=== PATIENT | male | born 1970 | race Hispanic/Latino ===

== ENCOUNTER 2022-01-13 20:15 | Emergency (ER) | payer OTHER ==
[2022-01-13] MEDS ORDERED: LIDOCAINE 0.5%/EPINEPHRINE 1:200,000 VIAL (50 ML) MDV INFILTRATI ONE (21:16)
[2022-01-13] MEDS ORDERED: HYDROcodone/ACETAMINOPHEN 5-325 MG TAB PO ONE (21:41)
[2022-01-13] MEDS ORDERED: cephALEXin 500 MG CAP PO ONE (22:00)
--- NOTE | 2022-01-13 22:06 | Emergency Department Report ---
ED General Adult HPI - General Chief complaint: Wound/Laceration Stated complaint: CHIN LAC Time Seen by Provider: 01/13/22 21:16 Source: police Mode of arrival: Ambulatory Limitations: No Limitations - History of Present Illness Initial comments: 51-year-old male states inmate in custody of [facility] department. [place] at bedside. Patient presents for chin laceration status post fall from mid concrete wall today approximately 4 hours ago. Patient remained recalls entire incident. States he bit his tongue and cause laceration to bottom of his chin. Bleeding was stopped via direct pressure self applied. Last tetanus 2 years ago. There is no LOC, patient was immediately amatory after incident. Did arrive via police department patient is alert oriented x3 complains of 8/10 chin pain exacerbated by movement. And 4/10 posterior neck pain exacerbated by movement. There is noted 3 cm laceration to dorsal chin. No bleeding noted at this time. No foreign bodies noted at this time no obvious deformity. Pain is exacerbated by palpation. As are relieved by nothing tried. - Related Data Previous Rx's Medication Instructions Recorded Last Taken Type cephALEXin [Keflex] 500 mg PO TID 7 Days #21 cap 01/13/22 Unknown Rx traMADoL [Ultram] 50 mg PO Q6HR PRN #12 tablet 01/13/22 Unknown Rx Allergies Allergy/AdvReac Type Severity Reaction Status Date / Time No Known Allergies Allergy Verified 01/13/22 21:19 ED Review of Systems ROS: Stated complaint: CHIN LAC Other details as noted in HPI Constitutional: denies: chills, fever Eyes: denies: eye pain, eye discharge, vision change ENT: denies: ear pain, throat pain Respiratory: denies: cough, shortness of breath, wheezing Cardiovascular: denies: chest pain, palpitations Endocrine: no symptoms reported Gastrointestinal: denies: abdominal pain, nausea, diarrhea Genitourinary: denies: urgency, dysuria Musculoskeletal: other (Neck pain chin pain Chin laceration) Skin: other (Laceration chin 3 cm) Neurological: denies: headache, weakness, numbness, paresthesias, confusion, vertigo Psychiatric: denies: anxiety, depression Hematological/Lymphatic: denies: easy bleeding, easy bruising ED Past Medical Hx - Past Medical History Previous Medical History?: No - Surgical History Past Surgical History?: No - Social History Smoking Status: Former Smoker Substance Use Type: None - Medications Home Medications: Home Medications Medication Instructions Recorded Confirmed Last Taken Type cephALEXin [Keflex] 500 mg PO TID 7 Days #21 cap 01/13/22 Unknown Rx traMADoL [Ultram] 50 mg PO Q6HR PRN #12 tablet 01/13/22 Unknown Rx ED Physical Exam - General Limitations: No Limitations General appearance: alert, in no apparent distress - Head Head exam: Present: normocephalic, normal inspection - Expanded Head Exam Expanded Head exam: Present: laceration (Chin 3 cm). Absent: abrasion, contusion, hematoma - Eye Eye exam: Present: PERRL, EOMI. Absent: conjunctival injection, nystagmus, periorbital swelling, periorbital tenderness Pupils: Present: normal accommodation - ENT ENT exam: Present: normal orophraynx, mucous membranes moist, TM's normal bilaterally - Neck Neck exam: Present: normal inspection, tenderness (Right posterior paraspinous muscle point tenderness to deep palpation there is no crepitus no ecchymosis no step-off range of motion intact unrestricted to all quadrants posterior vertebral point tenderness), full ROM - Respiratory Respiratory exam: Present: normal lung sounds bilaterally. Absent: respiratory distress, wheezes, stridor, chest wall tenderness - Cardiovascular Cardiovascular Exam: Present: regular rate, normal rhythm, normal heart sounds. Absent: systolic murmur, diastolic murmur, rubs, gallop - GI/Abdominal GI/Abdominal exam: Present: soft, normal bowel sounds. Absent: distended, tenderness - Rectal Rectal exam: Present: deferred - Extremities Exam Extremities exam: Present: normal inspection, full ROM, normal capillary refill. Absent: tenderness - Back Exam Back exam: Present: normal inspection, full ROM. Absent: paraspinal tenderness, vertebral tenderness - Neurological Exam Neurological exam: Present: alert, oriented X3, CN II-XII intact, normal gait, reflexes normal. Absent: motor sensory deficit - Expanded Neurological Exam Expanded Patient oriented to: Present: person, place, time Speech: Present: fluid speech Cranial nerves: EOM's Intact: Normal, Gag Reflex: Normal, Tongue Deviation: Normal, Nystagmus: Normal, Facial Sensation: Normal Cerebellar function: Finger to Nose: Normal Motor strength exam: RUE: 5, LUE: 5, RLE: 5, LLE: 5 Best Eye Response (B[place]): (4) open spontaneously Best Motor Response ([place]): (6) obeys commands Best Verbal Response (Sabrina): (5) oriented [place] Total: 15 - Psychiatric Psychiatric exam: Present: normal affect, normal mood - Skin Skin exam: Present: warm, dry, normal color, other (3 cm chin). Absent: rash ED Course Vital Signs 01/13/22 20:16 Temperature 97.2 F L Pulse Rate 64 Respiratory 18 Rate Blood Pressure 140/77 O2 Sat by Pulse 96 Oximetry - Laceration /Wound Repair Face Wound Location: face (Dorsal chin 3 cm noncontaminated no nerve muscle or tendon damage no oral intrusion.) Wound Length (cm): 3 Wound's Depth, Shape: superficial Wound Explored: no foreign body removed Irrigated w/ Saline (ccs): 80 Betadine Prep?: Yes Anesthesia: 1% Lidocaine Volume Anesthetic (ccs): 3 Wound Debrided: minimal Wound Repaired With: sutures Suture Size/Type: 4:0, proline Number of Sutures: 8 (Running) Layer Closure?: No Sterile Dressing Applied?: Yes Progress: Chin laceration site cleaned with Betadine solution. Anesthesia 1% lidocaine x3 cc anesthesia is achieved. Wound irrigated with 80 cc sterile saline. No foreign bodies noted. Wound explored and manually probed with six-inch blunt forceps. Wound closed with four-point 0 Prolene times 8 sutures running edges well approximated all bleeding is controlled sterile dressing applied patient given wound care instructions patient verbalized understanding of same. Patient tolerated procedure with minimal distress. ED Medical Decision Making - Radiology Data Radiology results: report reviewed, image reviewed FACIAL BONES 3 VIEW(S) INDICATION / CLINICAL INFORMATION: chin laceration fall COMPARISON: None available. FINDINGS: BONES: No acute fracture. PARANASAL SINUSES: No significant abnormality. SOFT TISSUES: No significant abnormality. ADDITIONAL FINDINGS: None. IMPRESSION: 1. No significant abnormality. Signer Name: Pj Alonso DO Signed: 01/13/2022 10:33 PM Workstation Name: [id number] Transcribed By: CHICHI Dictated By: PJ ALONSO DO Electronically Authenticated By: PJ ALONSO DO Signed Date/Time: 01/13/222232 DD/ 31 TD/TT: CERVICAL SPINE 3 VIEWS INDICATION / CLINICAL INFORMATION: Neck pain s/p fall. COMPARISON: None available. FINDINGS: VERTEBRAE: No acute fracture. No significant malalignment. DISC SPACES / FACET JOINTS:Mild degenerative disc disease at C5-C6 and C6-C7. PARASPINAL SOFT TISSUES:No significant abnormality. ADDITIONAL FINDINGS: None. Signer Name: Pj Alonso DO Signed: 01/13/2022 10:33 PM Workstation Name: [id number] Transcribed By: CHICHI Dictated By: PJ ALONSO DO Electronically Authenticated By: PJ ALONSO DO Signed Date/Time: 01/13/222232 DD/ 32 TD/TT: - Medical Decision Making Chin laceration closed see procedure note. X-rays normal no fracture no subluxation no dislocation no soft tissue abnormalities. Plan DC to custody of [facility] department. [facility] check. Return to emergency department should symptoms worsen. Patient verbalized agreement understanding of discharge plan. Patient DC'd in custody of [facility]'s department at this time. All bleeding is controlled sterile dressing is intact. Critical care attestation.: If time is entered above; I have spent that time in minutes in the direct care of this critically ill patient, excluding procedure time. ED Disposition Clinical Impression: Laceration of chin Qualifiers: Encounter type: initial encounter Qualified Code(s): S01.81XA - Laceration without foreign body of other part of head, initial encounter Fall Qualifiers: Encounter type: initial encounter Qualified Code(s): W19.XXXA - Unspecified fall, initial encounter Disposition: HOME / SELF CARE / HOMELESS Is pt being admited?: No Does the pt Need Aspirin: No Condition: Stable Instructions: Laceration Care, Adult, Sutures, [place], or Adhesive Wound Closure Additional Instructions: Take medications as prescribed, follow-up with your doctor in 2 days for wound check. In 7 to 10 days for suture removal. Return to emergency department should symptoms worsen. Prescriptions: cephALEXin [Keflex] 500 mg PO TID 7 Days #21 cap traMADoL [Ultram] 50 mg PO Q6HR PRN #12 tablet PRN Reason: Pain Referrals: PRIMARY CARE,MD [Primary Care Provider] - 3-5 Days Time of Disposition: 22:54
--- NOTE | 2022-01-13 22:37 | XRay Report ---
FACIAL BONES 3 VIEW(S) INDICATION / CLINICAL INFORMATION: chin laceration fall COMPARISON: None available. FINDINGS: BONES: No acute fracture. PARANASAL SINUSES: No significant abnormality. SOFT TISSUES: No significant abnormality. ADDITIONAL FINDINGS: None. IMPRESSION: 1. No significant abnormality. Signer Name: Pj Alonso DO Signed: 01/13/2022 10:33 PM Workstation Name: [id number]
--- NOTE | 2022-01-13 22:38 | XRay Report ---
CERVICAL SPINE 3 VIEWS INDICATION / CLINICAL INFORMATION: Neck pain s/p fall. COMPARISON: None available. FINDINGS: VERTEBRAE: No acute fracture. No significant malalignment. DISC SPACES / FACET JOINTS:Mild degenerative disc disease at C5-C6 and C6-C7. PARASPINAL SOFT TISSUES:No significant abnormality. ADDITIONAL FINDINGS: None. Signer Name: Pj Alonso DO Signed: 01/13/2022 10:33 PM Workstation Name: [id number]
[2022-01-13 23:01] VITALS: BP 136/82
== END 2022-01-13 23:01 | disposition home or self-care (01) ==
LOC: ED 20:15
DX: S01.81XA Laceration without foreign body of other part of head, initial encounter (principal); Z87.891 Personal history of nicotine dependence; W18.39XA Other fall on same level, initial encounter; Y93.89 Activity, other specified; Y92.89 Other specified places as the place of occurrence of the external cause; Y99.8 Other external cause status
CPT/HCPCS: 70140; 72040; 99283; J3490